=== PATIENT | male | born 1990 | race Caucasian/White ===

== ENCOUNTER 2018-09-16 22:32 | Emergency (ER) | payer BC, MEDICAID ==
[~2018-09-16] VITALS: Ht 180.3 cm; Wt 100.0 kg
[2018-09-16] MEDS ORDERED: BACITRACIN 0.9 GM PACKET OINTMENT TP ONE (23:29)
[2018-09-16] MEDS ORDERED: BUPIVACAINE HCL/PF 0.25% 10 ML VIAL INJ ONE (23:30)
[2018-09-17 00:11] VITALS: BP 130/80
== END 2018-09-17 00:18 | disposition home or self-care (01) ==
LOC: EMS 22:33
DX: S01.81XA Laceration without foreign body of other part of head, initial encounter (principal); F17.210 Nicotine dependence, cigarettes, uncomplicated; W50.0XXA Accidental hit or strike by another person, initial encounter; Y93.89 Activity, other specified; Y92.89 Other specified places as the place of occurrence of the external cause; Y99.8 Other external cause status
CPT/HCPCS: 12013; 99283; 99406; J3490